=== PATIENT | female | born 1960 | race Caucasian/White ===

== ENCOUNTER 2016-11-12 00:34 | Emergency (ER) | payer OTHER ==
[2016-11-12] MEDS ORDERED: OXYCODONE HCL 5 MG TABLET ONE (01:54)
[2016-11-12 02:06] LABS: ABSOLUTE NEUTROPHIL COUNT 5.1 K/mm3 (1.8-7.7); BASO % 0.5 % (0.2-1.0); EOS # 0.7 (0.0-0.5); EOS % 8.6 % (0.9-2.9); HEMOGLOBIN 12.4 gm/l (12.0-16.0); IMM NEUT% 0.3 % (0-1); LYMPH % 13.3 % (15-45); MEAN CELL VOLUME 92.8 fl (81.0-99.0); MEAN CORPUSCULAR HGB CONC 34.4 g/dl (33.0-37.0); MEAN PLATELET VOLUME 12.1 fl (7.4-10.4); MONO # 0.8 (0.0-0.8); MONO % 10.3 % (4-12); PLATELET COUNT 212 K/mm3 (130-400)
[2016-11-12 02:56] LABS: CALCIUM 9.3 mg/dL (8.6-10.3)
[2016-11-12 03:04] LABS: C-REACTIVE PROTEIN 2.9 mg/dl (<1.0)
--- NOTE | 2016-11-12 07:37 | US ---
DUPLX SCAN VEIN EXT UNI RT History: Knee replacement 3 weeks ago with increasing pain and swelling. Findings: Ultrasonography of the right lower extremity was performed, with grayscale color and Doppler technique utilizing evaluation of the lower extremity. There is adequate compressibility of the deep venous system without current findings of deep venous thrombosis. Normal responses are seen to augmentation and Valsalva maneuvers. Normal respiratory variation is observed as well. Impression: 1. A right lower extremity ultrasound which currently appears negative, with no current findings of deep venous thrombosis observed. The findings were called to the emergency room at 0343 hours, 11/12/2016, by [facility]ology.
--- NOTE | 2016-11-12 07:43 | RAD ---
11/12/2016 7:39 AM CHEST - 2 VIEWS History: Shortness of breath and right knee swelling. History of right TKR 3 weeks ago. Comparison: 12/20/2013 Findings: Two views of the chest are obtained. The lungs are clear with out effusion or pneumothorax. The cardiomediastinal silhouette is unremarkable.. The osseous structures are intact.. IMPRESSION: No acute intrathoracic process.
== END 2016-11-12 04:29 | disposition home or self-care (01) ==
LOC: ED 00:34
DX: M25.561 Pain in right knee (principal); R50.9 Fever, unspecified; J45.909 Unspecified asthma, uncomplicated; Z96.651 Presence of right artificial knee joint
CPT/HCPCS: 86141; 85025; 80048; 85651; 71020; 99284; 93971; 99283; A9270